=== PATIENT | male | born 1970 | race Caucasian/White ===

== ENCOUNTER 2021-05-26 22:45 | Emergency (ER) | payer SELFPAY ==
[~2021-05-26] VITALS: Ht 177.8 cm; Wt 90.7 kg
[2021-05-26 22:45] VITALS: BP 113/63
--- NOTE | 2021-05-26 22:48 | NUR ---
PT JD ALS. TAKEN TO BED 6
--- NOTE | 2021-05-26 23:00 | NUR ---
PT USING INAPPROPRIATE VERBAGE TOWARDS STAFF, PT ATTEMPTING TO LEAVE ER, PT UNCOOPERATIVE. SECUTIRY AT BEDSIDE. ERMD AWARE.
[2021-05-26] MEDS ORDERED: diphenhydrAMINE 50 MG/ML VIAL IM ONE (23:05)
[2021-05-26] MEDS ORDERED: NACL 0.9% 1,000 ML IV ONE (23:05)
[2021-05-26] MEDS ORDERED: NALOXONE PFS 2 MG/2 ML SYR IVP ONE (23:05)
[2021-05-26] MEDS ORDERED: HALOPERIDOL IM 5 MG/ML VIAL IM ONE (23:05)
[2021-05-26] MEDS ORDERED: LORazepam 2 MG/ML VIAL IM ONE (23:05)
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
[2021-05-27 00:24] LABS: BASOPHILS % (AUTO) 0.3 % (0.0-2.0); EOSINOPHILS # (AUTO) 0.7 K/uL (0-0.4); EOSINOPHILS % (AUTO) 7.8 % (0.0-4.0); HEMATOCRIT 44.1 % (36-52); HEMOGLOBIN 14.8 g/dL (12.0-18.0); LYMPHOCYTES # (AUTO) 0.8 K/uL (2.0-11.5); LYMPHOCYTES % (AUTO) 8.5 % (20.5-51.1); MEAN CORPUSCULAR HEMOGLOBIN 34 pg (27-31); MEAN CORPUSCULAR HGB CONC 34 g/dL (33-37); MEAN CORPUSCULAR VOLUME 102.5 fL (80-94); MONOCYTES # (AUTO) 0.3 K/uL (0.8-1.0); MONOCYTES % (AUTO) 3.1 % (1.7-9.3); NEUTROPHILS # (AUTO) 7.3 K/uL (1.8-7.7); NEUTROPHILS % (AUTO) 80.3 % (42.2-75.2); PLATELET COUNT (AUTO) 376 K/uL (140-450); RED BLOOD CELL COUNT(AUTO) 4.31 MIL/uL (4.20-6.10); RED CELL DISTRIBUTION WIDTH 14.8 % (11.6-13.7); WHITE BLOOD COUNT (AUTO) 9.1 K/uL (4.8-10.8)
[2021-05-27 00:50] LABS: ALBUMIN 3.1 g/dL (3.4-5.0); ANION GAP 15.2 (8-16); ASPARTATE AMINOTRANSFERASE 53 U/L (15-37); CARBON DIOXIDE 23.7 mmol/L (21-32); CHLORIDE 106 mmol/L (98-107); CREATININE 0.7 mg/dL (0.6-1.3); GFR ARICAN-AMERICAN 152 mL/min (>90); GLUCOSE 79 mg/dL (74-106); POTASSIUM 3.9 mmol/L (3.5-5.1); SALICYLATE 4.4 mg/dL (2.8-20.0); SODIUM SERUM 141 mmol/L (136-145); TOTAL BILIRUBIN 0.3 mg/dL (0.0-1.0); UREA NITROGEN, BLOOD 9 mg/dL (7-18)
[2021-05-27 00:55] LABS: ACETAMINOPHEN < 0.5 ug/ml (10-30)
--- NOTE | 2021-05-27 01:01 | NUR ---
PT APPEARS TO BE RESTING W EYES CLOSED IN R LATERAL POSITION. VSS. BREATHING EVEN AND UNLABORED. NAD NOTED, WILL CONTINUE TO MONITOR.
[2021-05-27] MEDS ORDERED: NACL 0.9% 1,000 ML IV ONE (02:05)
--- NOTE | 2021-05-27 03:31 | NUR ---
straight cath attempted for urine collected, no urine output, minimal blood noted in catheter, ermd aware. per ermd no need to collect urine sample anymore. straight cath removed.
--- NOTE | 2021-05-27 05:39 | NUR ---
pt ambulated to bathroom w steady gait, upon standing up blood noted on pt underwear and sheets for from pt urethra, ermd made aware. No new orders at this time.
--- NOTE | 2021-05-27 05:42 | NUR ---
PT REPORTS BLOOD IN URINE WHEN URINATING IN BATHRROM, REQUESTING FOR ERMD TO ASSESS. ERMD MADE AWARE. NO NEW ORDERS AT THIS TIME. PT RETURNED TO BED, BREATHING EVEN AND UNLABORED. WILL CONTINUE TO MONITOR.
--- NOTE | 2021-05-27 06:12 | NUR ---
Brandy bautista in ED - 05/27/21 at 0613 by JONAS PT REPORTS ALLERGY TO HALDOL REPORTS HE "GOES NUTS WHEN HE GETS HALDOL." JOSE SOLORIO.
--- NOTE | 2021-05-27 06:33 | NUR ---
PT AMBULATES WITHOUT ASSISTANCE TO RESTROOM
--- NOTE | 2021-05-27 06:46 | NUR ---
Pt report given to LEONA LINDQUIST. Transfer of care at this time.
[2021-05-27 07:30] VITALS: BP 120/85
--- NOTE | 2021-05-27 07:31 | NUR ---
Patient discharged with v/s stable. Written and verbal after care instructions given and explained. Patient verbalized understanding. Ambulatory with steady gait. All questions addressed prior to discharge. Advised to follow up with PMD.
== END 2021-05-27 07:30 | disposition home or self-care (01) ==
LOC: MED 22:45
DX: R41.82 Altered mental status, unspecified (principal); F19.10 Other psychoactive substance abuse, uncomplicated; R00.0 Tachycardia, unspecified; R47.81 Slurred speech
CPT/HCPCS: 36415; 80053; 84484; 85025; 96360; 96361; 96372; 99285; G0480; G0482; J1200; J1630; J2060; J7030